=== PATIENT | male | born 1990 | race Caucasian/White ===

== ENCOUNTER → 2017-07-30 | Outpatient (CLI) | payer OTHER ==
[~2017-07-30] VITALS: Ht 190.5 cm; Wt 104.3 kg
[2017-07-30 13:50] VITALS: BP 144/93; PULSE 92; Ht 190.5 cm; Wt 104.3 kg
== END | disposition home or self-care (01) ==
LOC: C.NEUR 13:25
PROVIDERS: ATTEND Internal Medicine Pulmonary Disease
DX: R06.81 Apnea, not elsewhere classified (principal); G47.33 Obstructive sleep apnea (adult) (pediatric)